=== PATIENT | female | born 1970 | race Caucasian/White ===

== ENCOUNTER 2021-04-15 08:16 | Outpatient (CLI) | payer BC, SELFPAY ==
--- NOTE | ~2021-04-15 | MM_ITS ---
EXAMINATION: MM screening krystal BI w bee HISTORY: Screening TECHNIQUE: Craniocaudal and mediolateral oblique 3-D tomosynthesis images were obtained and synthetic 2-D images were generated. CAD analysis was submitted and interpreted. COMPARISON: No prior mammogram is available for comparison at this institution. BREAST PARENCHYMAL COMPOSITION: There are scattered areas of fibroglandular density. FINDINGS: There is a focal asymmetry medial aspect of the right breast anteriorly, not definitely see n on MLO view. There is no mammographic evidence for malignancy in the left breast. IMPRESSION: 1. Focal asymmetry medial aspect of the right breast. 2. Additional mammographic views and possible breast ultrasound are recommended. BI-RADS Category 0: Incomplete: Needs additional imaging evaluation. Reviewed, dictated and finalized at location A. IMPRESSION: 1. Focal asymmetry medial aspect of the right breast. 2. Additional mammographic views and possible breast ultrasound are recommended . BI-RADS Category 0: Incomplete: Needs additional imaging evaluation.
== END 2021-04-15 08:17 | disposition home or self-care (01) ==
LOC: ANHIMG 08:18
PROVIDERS: PCP Family Medicine; Visit Provider Obstetrics & Gynecology Gynecology
DX: Z12.31 Encounter for screening mammogram for malignant neoplasm of breast (principal); R92.8 Other abnormal and inconclusive findings on diagnostic imaging of breast
CPT/HCPCS: 77063; 77067

== ENCOUNTER 2021-07-27 14:12 | Outpatient (CLI) | payer BC, SELFPAY ==
--- NOTE | ~2021-07-27 | MMUS_ITS ---
EXAMINATION: MM diagnostic krystal RT w bee, US breast RT limited HISTORY: Right breast asymmetry on screening mammogram TECHNIQUE: Additional 3-D tomosynthesis images of the right breast were performed and synthetic 2-D i mages were generated. CAD analysis was submitted and interpreted. High resolution limited right breas t ultrasound was performed. COMPARISON: 04/15/2021 BREAST PARENCHYMAL COMPOSITION: There are scattered areas of fibroglandular density. FINDINGS: MAMMOGRAPHIC FINDINGS: No definite persistent asymmetry is identified with spot compression views of the right breast. No tavera spicious calcification or architectural distortion are identified. ULTRASOUND: There is no evidence of focal abnormal solid or cystic mass in the vicinity of the mammographic findi ng in question. IMPRESSION: 1. No mammographic or sonographic evidence of malignancy. 2. Recommend routine screening mammography in one year. BI-RADS Category 1: Negative Reviewed, dictated and finalized at location A. ICULUM COORDINATOR IMPRESSION: 1. No mammographic or sonographic evidence of malignancy. 2. Recommend routine screening mammography in one year. BI-RADS Category 1: Negative
== END 2021-07-27 14:13 | disposition home or self-care (01) ==
LOC: ANHIMG 14:13
PROVIDERS: PCP Family Medicine; Visit Provider Obstetrics & Gynecology Gynecology
DX: R92.8 Other abnormal and inconclusive findings on diagnostic imaging of breast (principal)
CPT/HCPCS: 76642; 77061; 77065; G0279

== ENCOUNTER 2024-12-21 07:28 | Outpatient (CLI) | payer BC, SELFPAY ==
--- NOTE | ~2024-12-21 | MM_ITS ---
EXAMINATION: MM screening krystal BI w bee HISTORY: Screening TECHNIQUE: Craniocaudal and mediolateral oblique 3-D tomosynthesis images were obtained and synthetic 2-D images were generated. CAD analysis was submitted and interpreted. COMPARISON: Comparison to multiple prior studies sequentially, with oldest reviewed study dated 04/15. BREAST PARENCHYMAL COMPOSITION: Not dense: There are scattered areas of fibroglandular density. FINDINGS: There is no evidence of suspicious mass, calcification, or architectural distortion to sugg est malignancy in either breast. There has been no suspicious interval change. IMPRESSION: 1. No mammographic evidence of malignancy. 2. Recommend routine screening mammography in one year. BI-RADS Category 1: Negative Reviewed, dictated and finalized at location A.
== END 2024-12-21 07:29 | disposition home or self-care (01) ==
PROVIDERS: PCP Nurse Practitioner Family; Visit Provider Obstetrics & Gynecology Gynecology
DX: Z12.31 Encounter for screening mammogram for malignant neoplasm of breast (principal)
CPT/HCPCS: 77063; 77067

== ENCOUNTER 2025-01-10 09:50 | Outpatient (CLI) | payer BC, SELFPAY ==
--- NOTE | ~2025-01-10 | US_ITS ---
EXAMINATION: US renal BI DATE: 01/10/2025 10:38 INDICATION: Stage IIIB chronic kidney disease TECHNIQUE: Multiple ultrasound grayscale images of the kidneys were obtained. COMPARISON: None. FINDINGS: The right kidney measures 10.3 x 5.0 x 5.2 cm. The left kidney measures 10.8 x 5.3 x 5.7 cm. The kidn eys demonstrate normal echogenicity. 7 mm hyperechoic lesion at the upper pole the right kidney. Ther e is no hydronephrosis in either kidney. No stones identified. The bladder is normal. IMPRESSION: 1. Indeterminate 7 mm hyperechoic region at the upper pole the right kidney. Recommend further evalu ation with pre and postcontrast MRI or CT. 2. Otherwise normal kidneys with no hydronephrosis. Reviewed, dictated and finalized at location A. IMPRESSION: 1. Indeterminate 7 mm hyperechoic region at the upper pole the right kidney. R ecommend further evaluation with pre and postcontrast MRI or CT. 2. Otherwise normal kidneys with no hydronephrosis.
== END 2025-01-10 09:51 | disposition home or self-care (01) ==
PROVIDERS: PCP Nurse Practitioner Family; Visit Provider Internal Medicine Nephrology
DX: R93.421 Abnormal radiologic findings on diagnostic imaging of right kidney (principal); I12.9 Hypertensive chronic kidney disease with stage 1 through stage 4 chronic kidney disease, or unspecified chronic kidney disease; E11.22 Type 2 diabetes mellitus with diabetic chronic kidney disease; N18.2 Chronic kidney disease, stage 2 (mild)
CPT/HCPCS: 76775

== ENCOUNTER 2025-03-16 18:15 | Emergency (ER) | payer BC, SELFPAY ==
[2025-03-16 18:26] VITALS: BP 123/86; PULSE 81; RESP 16; TEMP 36.6; O2SAT 100
[2025-03-16 18:39] LABS: EDCOVIDSCREEN Positive (Negative); EDINFLUASCREEN Negative (Negative); EDINFLUBSCREEN Negative (Negative)
--- NOTE | 2025-03-16 19:22 | ED.URI ---
HPI - URI/Sore Throat General Chief Complaint: Upper Respiratory Infection Stated Complaint: COUGH/COLD Time Seen by Provider: 03/16/25 18:55 Source: patient and RN notes reviewed Mode of arrival: ambulatory Limitations: no limitations History of Present Illness HPI Narrative: Patient presents today complaining of a 2 day history of nasal congestion and fatigue. She was traveling for work last week in close contact with many people. Prior to traveling she had had a mild cough for 3 weeks with some postnasal drainage that she is attributing to seasonal allergies. Denies any current fever, shortness of breath, chest pain, or any additional symptoms. She has tried Claritin and some boob-euc-palbjfe cough medicine with some mild relief. No history of asthma or COPD. Related Data Home Medications ?Medication ?Instructions ?Recorded ?Confirmed ?Last Taken ?Type aspirin 81 mg tablet,delayed 81 mg PO DAILY 09/23/24 03/04/25 Unknown History release (Adult Low Dose Aspirin) Allergies Allergy/AdvReac Type Severity Reaction Status Date / Time No Known Allergies Allergy Verified 03/16/25 18:28 [facility] Past Medical History Medical History Stage 3b chronic kidney disease (CKD) COVID Positional vertigo Type 2 diabetes mellitus with other circulatory complications Benign essential hypertension Other and unspecified hyperlipidemia Hypothyroidism (acquired) Onychomycosis due to dermatophyte Surgical History Surgical History S/P cholecystectomy (~1999) History of tonsillectomy and adenoidectomy (~1977) Family History Family History Grandparent Family history of cardiovascular disease Father Malignant neoplasm of prostate Mother Family history of malignant neoplasm of cervix Alzheimer disease Social History Social History Smoking status: Never smoker Second hand tobacco smoke exposure: No Alcohol intake: current Substance use: never Substance use type: does not use Do You Feel Safe in your Home?: Yes Lack of Transportation: No Lack of Food: Never True Current Housing: I Have Housing Concerned About Future Housing: No Difficulty Paying Gas/Electric Bills: No Difficulty Paying for Meds: No Currently Unemployed: No Education: Bachelor's Degree Difficulty w/ Childcare or Family Care: No Living arrangements: with family Occupation/Education: occupation Gender identity (if verbalized by the patient): Female Comments At time of signature, I have reviewed and agree with nursing past medical, surgical, social and family history unless otherwise noted. Please see nursing chart for further information. There is no relevant family history pertinent to the presenting complaint Exam Narrative: GENERAL: Well-appearing, well-nourished, and in no acute distress. HEAD: Normocephalic, atraumatic. EYES: EOMI. No redness or drainage. Conjunctivae normal. ENT: Mucous membranes pink and moist. Nares mildly congested. No rhinorrhea. TMs normal bilaterally. Throat normal. Uvula midline. NECK: Normal AROM. Supple. No lymphadenopathy. CHEST: No respiratory distress. Clear to auscultation. HEART: Regular rate and rhythm. No murmur appreciated. EXTREMITIES: Normal range of motion. No edema. SKIN: Warm, dry, no rash. Capillary refill normal. Normal skin turgor. NEURO: No focal deficits. Alert and oriented x3. Gait steady. PSYCH: Normal affect. No signs of depression or anxiety. Course Course Level of Care: Express Care Visit Vital Signs Vital signs: Vital Signs Temperature 97.8 F 03/16/25 18:26 Pulse Rate 81 03/16/25 18:26 Respiratory Rate 16 03/16/25 18:26 Blood Pressure 123/86 03/16/25 18:26 Pulse Oximetry 100 03/16/25 18:26 Temperature 97.8 F 03/16/25 18:26 Pulse Rate 81 03/16/25 18:26 Respiratory Rate 16 03/16/25 18:26 Blood Pressure 123/86 03/16/25 18:26 Pulse Oximetry 100 03/16/25 18:26 Oxygen Delivery Room Air 03/16/25 18:31 Reviewed MDM - URI/Sore Throat MDM Narrative Medical decision making narrative: 55-year-old female presents with a 2 day history of nasal congestion and fatigue after being out of town for work. Prior to this she had a 3 week history of a mild cough and postnasal drainage. Denies fever, shortness of breath, chest pain, or any severe symptoms. Btdb-xed-pwpyosh medication has been helping somewhat with symptoms. Influenza negative. COVID swab positive. Vital signs stable. At this time, patient is asking for a work note as she is supposed to go out of town tomorrow for work again. Recommend quarantine until symptoms have improved per CDC guidelines. Anticipatory guidance given. ED precautions given. Differential Diagnosis Differential diagnosis: Likely upper respiratory infection, sinusitis, viral infection, bronchitis, influenza and other (COVID-19, seasonal allergies) Lab Data Attestation: I reviewed the patient's lab results. Labs: Lab Results 03/16/25 Range/Units 18:38 POC Influenza A Ag Negative (Negative) POC Influenza B Ag Negative (Negative) POC SARS CoV-2 Ag Positive (Negative) Critical Care Time Critical Care Time Critical Care Time: No Discharge Plan Discharge Clinical Impression: COVID-19 Patient Disposition: Home Condition: Stable Instructions: COVID-19 (Coronavirus Disease 2019) (ED) Additional Instructions: You have tested positive for COVID-19 today. Your flu test is negative. Continue uyth-[id number]-utqfbbb medication as needed. Virus symptoms typically last 7-10 days before resolving. Follow-up with your PCP in 1 week if symptoms are not improving. Go to the ER immediately if symptoms worsen to include shortness of breath, chest pain, persistent fever greater than 100.3, uncontrolled nausea or vomiting. Your blood pressure was elevated above 120/80 today at Urgent Care. This puts you above the threshold for follow up. Please schedule a followup visit with your personal physician as soon as possible, for further evaluation and treatment. Even blood pressure exceeding 120/80 may indicate pre-hypertension. Patient Language: Brazilian Prescriptions: No Action aspirin [Adult Low Dose Aspirin] 81 mg tablet,delayed release (DR/EC) 81 mg PO DAILY levothyroxine 88 mcg tablet 88 mcg PO DAILY Qty: 90 1RF rosuvastatin 10 mg tablet See Rx Instructions .ROUTE .COMPLEX Qty: 90 1RF Dose Instruction: TAKE 1 TABLET BY MOUTH EVERY DAY Rx Instructions: TAKE 1 TABLET BY MOUTH EVERY DAY amlodipine 5 mg tablet See Rx Instructions .ROUTE .COMPLEX Qty: 90 1RF Dose Instruction: TAKE 1 TABLET BY MOUTH EVERY DAY Rx Instructions: TAKE 1 TABLET BY MOUTH EVERY DAY lisinopril 20 mg tablet 20 mg PO DAILY Qty: 90 1RF Ozempic 0.25 mg or 0.5 mg (2 mg/3 mL) pen injector 0.25 mg subcut WEEKLY Qty: 3 0RF Rx Instructions: for 4 weeks metformin 1,000 mg tablet 1,000 mg PO BID Qty: 180 1RF Jardiance 25 mg tablet 25 mg PO QAM Qty: 90 1RF Follow-up/Referrals: Melanie Braga NP [Primary Care Provider] - Stand Alone Forms: Work/School Release IP Time of Disposition: 19:03
== END 2025-03-16 19:08 | disposition home or self-care (01) ==
PROVIDERS: Emergency Provider Nurse Practitioner; PCP Nurse Practitioner Family
DX: U07.1 COVID-19 (principal); I12.9 Hypertensive chronic kidney disease with stage 1 through stage 4 chronic kidney disease, or unspecified chronic kidney disease; E11.22 Type 2 diabetes mellitus with diabetic chronic kidney disease; N18.32 Chronic kidney disease, stage 3b; Z79.84 Long term (current) use of oral hypoglycemic drugs; Z79.85 Long-term (current) use of injectable non-insulin antidiabetic drugs; E78.49 Other hyperlipidemia; E03.9 Hypothyroidism, unspecified; Z79.82 Long term (current) use of aspirin
CPT/HCPCS: 87426; 87804; 99212; G0463